=== PATIENT | female | born 1980 | race Caucasian/White ===

== ENCOUNTER → 2023-12-08 | Outpatient (CLI) | payer BC ==
[~2023-12-08] VITALS: Ht 162.6 cm; Wt 110.0 kg
[~2023-12-08] MED LIST: Ketorolac 30 MG/ML VIAL IV ONE; cefTRIAXone 1 G in Water For Injection,Sterile 10 ML IV ONE; dexAMETHasone 4 MG/ML VIAL IV ONE; diphenhydrAMINE 50 MG/ML 1 ML VIAL IJ ONE; diphenhydrAMINE 50 MG/ML 1 ML VIAL IV ONE
[2023-12-08 15:23] VITALS: BP 143/88
[2023-12-08 16:09] VITALS: BP 139/89
== END ==
LOC: AMSURD 13:58
DX: G43.909 Migraine, unspecified, not intractable, without status migrainosus (principal); J20.9 Acute bronchitis, unspecified
CPT/HCPCS: J0696; J1100; J1200; J1885; J2765; J7120